=== PATIENT | male | born 1980 | race Caucasian/White ===

== ENCOUNTER 2016-08-03 10:49 | Emergency (ER) | payer OTHER ==
--- NOTE | 2016-08-03 16:53 | ED ORDER SUMMARY ---
..... Patient: YFN GOODEN OrderSheet VisitID: [id number] [place] [address] 36y, M Registration Date/Time: 08/03/2016 ORDER SHEET Weight: 77.1 kg (estimated) Allergies: No Known Drug Allergy GENERAL ORDERS: Cardiac Panel Stat (12:08/03/2016 Fernanda ARAIZA) (Ack 12:16 CHARLIoerner) (13:00 JSimbeck R.N.) Urine Drug Screen Urgent (12:08/03/2016 Fernanda ARAIZA) (Ack 12:16 CHARLIoejasminner) (Cancelled: Unable to Cbzkwku06:23 FIDENCIOimbeck R.N.) Ethyl Alcohol Urgent (12:08/03/2016 Fernanda ARAIZA) (Ack 12:16 CHARLIoejasminner) (13:00 JSimbeck R.N.) Acetaminophen Level Urgent (12:08/03/2016 Fernanda ARAIZA) (Ack 12:16 CHARLIoerner) (13:00 JSimbeck R.N.) Salicylate Level Urgent (12:08/03/2016 Fernanda ARAIZA) (Ack 12:16 Anabelarner) (13:00 JSimbeck R.N.) MEDICATION ORDERS: Clonidine Topical 0.2 mg (NOW) (11:19 08/03/2016 Fernanda ARAIZA) (11:47 JSimbeck R.N.) Ativan IM 2 mg (NOW) (11:19 08/03/2016 Fernanda ARAIZA) (Cancelled: Other11:19 Fernanda ARAIZA) Ativan IM 2 mg (NOW) (11:21 08/03/2016 Fernanda ARAIZA) (11:47 FIDENCIOimbeck R.N.) IV FLUIDS: IV NS : initial bolus 1000 mL (1000 mL/hr), then none - for X1 (NOW); Routine (12:14 08/03/2016 Fernanda ARAIZA) (13:02 JSimbeck R.N.) IV NS : initial bolus 1000 mL (1000 mL/hr), then none - for X1 (NOW) (16:43 08/03/2016 Bigg Blanco verbal order read back to Fernanda ARAIZA) (16:45 Bigg Blanco) ORDER SHEET NOTES: [Electronically signed by Castillo Drake R.N. (18:24 08/03/2016)] [Electronically signed by Surjit Alonso MD (07:42 08/04/2016)] [Electronically locked/signed by Castillo Drake R.N. (18:24 08/03/2016)]
--- NOTE | 2016-08-03 16:53 | ED CLINICAL REPORT ---
Clinical Report - Physicians/Mid Levels [facility] [address] [place] [address] 08/03/2016 10:50 Patient: YFN GOODEN Time Seen: 11:13 Aug 03 2016. Arrived- By private vehicle. Historian- patient and police. CPT: ER phys charges level 4 (#[id number]). HISTORY OF PRESENT ILLNESS Chief Complaint: CHANGED MENTAL STATUS. ALTERED MENTAL STATUS and (Reports using Methamphetamines & Heroin yesterday. Pt is very restless, twitching.). Has not slept for 3 days. The patient has been confused and had trouble concentrating. (unintended twitching and tremor. Cannot sit still.). This started yesterday, is still present and unknown when patient was last known well. (Found in street confused with bizarre behavior.). No weakness, numbness or recent fall. No difficulty walking. Usually is alert and oriented X3 and usually has normal mobility. Similar symptoms previously: Milder. Diagnosis: (methamphetamine use). Recent medical care: Not recently seen/assessed. REVIEW OF SYSTEMS No fever, headache, head injury, chest pain or difficulty breathing. No cough, sputum production, sore throat, abdominal pain or nausea. No diarrhea, difficulty with urination, skin rash or vomiting. All systems otherwise negative, except as recorded above. PAST HISTORY ( Substance Abuse. GERD. Depression. - ADDITIONAL SURGERIES: Appendectomy. Knee Surgery.). Medications: Remeron Oral. Zoloft Oral. Omeprazole Oral. Allergies: No Known Drug Allergy. SOCIAL HISTORY Heavy tobacco smoker (cigarette)- less than 1 pack per day. History of drug use: heroin, methamphetamines, marijuana. No alcohol use. ADDITIONAL NOTES The nursing notes have been reviewed. PHYSICAL EXAM Vital Signs: 08/03/2016 10:52 BP: 139/95. HR: 104. RR: 20. O2 saturation: 100%. Temp: 98.1 F. Pain level now: 0/10. Appearance: Alert. No acute distress. (unable to stop muscle twitching and muscle jerking.). Head: Head atraumatic. Eyes: Pupils equal, round and reactive to light. ENT: Normal ENT inspection. Airway intact. Moist mucous membranes. Neck: Normal inspection. CVS: Normal heart rate and rhythm. Heart sounds normal. Pulses normal. Respiratory: No respiratory distress. Breath sounds normal. Abdomen: Soft and nontender. Skin: Skin warm. Normal skin color. No rash. Slight diaphoresis (over face.). Extremities: Extremities exhibit normal ROM. No lower extremity edema. Neuro: Alert. Oriented X 3. Abnormal verbal response (muscle twitching interferes with speech but patient oriented.). Mood/affect normal. Cranial nerves normal (as tested). Finger-nose test abnormal (unintentional muscle jerking inhibits exam but patient able to do finger to nose.). No motor deficit. No sensory deficit. LABS, X-RAYS, AND EKG Laboratory Tests: CBC w Diff: (SILVIA: 08/03/2016 12:55) ( [facility] 08/03/2016 13:08) Final results Test Result Flag Units (Reference) WHITE BLOOD COUNT 17.7 H K/uL (4.5-11.5) RED BLOOD COUNT 5.09 M/uL (4.50-5.90) HEMOGLOBIN 15.0 gm/dL (13.5-17.5) HEMATOCRIT 44.5 % (41.0-53.0) MEAN CELL VOLUME 87 fL (80-100) MEAN CORPUSCULAR HGB 30 pg (26-34) MEAN CORPUSCULAR HGB CONC 34 g/dL (31-37) RED CELL DISTRIBUTION WIDTH 13.4 % (11.6-14.8) PLATELET COUNT 250 K/uL (150-400) NEUTROPHIL % 82.4 H % (50-75) LYMPH % 7.3 L % (25-40) MONO % 10.2 % (3-14) EOSINOPHIL % 0 % (0-4) BASOPHIL % 0.1 % (0-2) Salicylate Level: (SILVIA: 08/03/2016 12:55) ( [facility] 08/03/2016 13:36) Final results Test Result Flag Units (Reference) SALICYLATE <2.8 L mg/dL (2.8-20) CHEM 13 PANEL: (SILVIA: 08/03/2016 12:55) ( MsgRcvd 08/03/2016 15:01) Final results Test Result Flag Units (Reference) GLUCOSE 57 L mg/dL (70-110) BUN 28 H mg/dL (7-18) CREATININE 1.4 H mg/dL (0.6-1.3) Estimated GFR >60 mL/min Estimated GFR- >60 mL/min Note: Persistent reduction over 3 months in eGFR<60 mL/min/1.73 m2 defines CKD. Patients with eGFR values>=60 mL/min/1.73 m2 may also have CKD if evidence ofpersistent proteinuria. Additional information may be foundat www.kidney.org. SODIUM 135 L mmol/L (136-145) POTASSIUM 3.8 mmol/L (3.5-5.1) CHLORIDE 98 mmol/L (98-107) CARBON DIOXIDE 22 mmol/L (21-32) CALCIUM 9.1 mg/dL (8.5-10.1) TOTAL PROTEIN 8.8 H g/dL (6.4-8.2) ALBUMIN 4.8 g/dL (3.3-5.0) BILIRUBIN, TOTAL 1.6 H mg/dL (0.0-1.0) ALKALINE PHOSPHATASE 95 U/L (46-116) AST (SGOT) 73 H U/L (15-37) ALT (SGPT) 58 U/L (12-78) MAGNESIUM 1.7 L mg/dL (1.8-2.4) ETHYL ALCOHOL <3 L mg/dL (3-10) TROPONIN I <0.05 ng/mL (0.00-1.5) TROPONIN REFERENCE RANGE:<0.1 NEGATIVE0.1-1.5 INDETERMINANT>1.5 POSITIVE CPK 1604 H U/L (24-260) CK-MB 33.5 H ng/mL (0.5-3.2) %CKMB 2.1 % (0.0-4.0) ACETAMINOPHEN 0 L ug/mL (10-30) . PROGRESS AND PROCEDURES Course of Care: Pt having a combination of sleep deprivation , methamphetamine use and withdrawal from heroin. Has secondary neurologic muscle jerking related to chronic methamphetamine use. Ativan 2 mg IM and patient sleeping with minimal muscle twitching. Much improved clinically. IV NS times 2 liters for dehydration and elevated CK from muscle movement. Clonidine 0.2 mg topical for withdrawal. Pt released to detention in stable condition. Ambulatory now with minimal muscle twitching. Patient/family counseled. Disposition: Discharged. Condition: stable and improved. CLINICAL IMPRESSION Substance abuse problems: abuse of methamphetamine. Substance dependence problems: dependence on methamphetamine. Sleep deprivation and involuntary muscle jerking due to methamphetamines. Dehydration Involuntary muscle jerking resulting in elevated CPK Withdrawal and involuntary muscle jerking resulting in elevated WBC. INSTRUCTIONS Drink plenty of fluids. (Leave clonidine patch on for 1 week. You are medically cleared to book into detention.). Warnings: Further evaluation is necessary. GENERAL WARNINGS: Return or contact your physician immediately if your condition worsens or changes unexpectedly, if not improving as expected, or if other problems arise. Your Current Medications: CONTINUE TAKING THE FOLLOWING MEDICATIONS: Omeprazole Oral. Remeron Oral. Zoloft Oral. Prescription Medications: Ativan 1 mg: take 1 orally every 6 hours as needed for anxiety. Dispense ten (10). No refill. Follow-up: Follow up with your doctor in one week. Call for an appointment. Understanding of the discharge instructions verbalized by patient. (Electronically signed by Surjit Alonso MD 08/04/2016 7:42)
--- NOTE | 2016-08-03 16:53 | ED CLINICAL REPORT ---
Clinical Report - Physicians/Mid Levels [facility] [address] [place] [address] 08/03/2016 10:50 Patient: YFN GOODEN Time Seen: 11:13 Aug 03 2016. Arrived- By private vehicle. Historian- patient and police. CPT: ER phys charges level 4 (#[id number]). HISTORY OF PRESENT ILLNESS Chief Complaint: CHANGED MENTAL STATUS. ALTERED MENTAL STATUS and (Reports using Methamphetamines & Heroin yesterday. Pt is very restless, twitching.). Has not slept for 3 days. The patient has been confused and had trouble concentrating. (unintended twitching and tremor. Cannot sit still.). This started yesterday, is still present and unknown when patient was last known well. (Found in street confused with bizarre behavior.). No weakness, numbness or recent fall. No difficulty walking. Usually is alert and oriented X3 and usually has normal mobility. Similar symptoms previously: Milder. Diagnosis: (methamphetamine use). Recent medical care: Not recently seen/assessed. REVIEW OF SYSTEMS No fever, headache, head injury, chest pain or difficulty breathing. No cough, sputum production, sore throat, abdominal pain or nausea. No diarrhea, difficulty with urination, skin rash or vomiting. All systems otherwise negative, except as recorded above. PAST HISTORY ( Substance Abuse. GERD. Depression. - ADDITIONAL SURGERIES: Appendectomy. Knee Surgery.). Medications: Remeron Oral. Zoloft Oral. Omeprazole Oral. Allergies: No Known Drug Allergy. SOCIAL HISTORY Heavy tobacco smoker (cigarette)- less than 1 pack per day. History of drug use: heroin, methamphetamines, marijuana. No alcohol use. ADDITIONAL NOTES The nursing notes have been reviewed. PHYSICAL EXAM Vital Signs: 08/03/2016 10:52 BP: 139/95. HR: 104. RR: 20. O2 saturation: 100%. Temp: 98.1 F. Pain level now: 0/10. Appearance: Alert. No acute distress. (unable to stop muscle twitching and muscle jerking.). Head: Head atraumatic. Eyes: Pupils equal, round and reactive to light. ENT: Normal ENT inspection. Airway intact. Moist mucous membranes. Neck: Normal inspection. CVS: Normal heart rate and rhythm. Heart sounds normal. Pulses normal. Respiratory: No respiratory distress. Breath sounds normal. Abdomen: Soft and nontender. Skin: Skin warm. Normal skin color. No rash. Slight diaphoresis (over face.). Extremities: Extremities exhibit normal ROM. No lower extremity edema. Neuro: Alert. Oriented X 3. Abnormal verbal response (muscle twitching interferes with speech but patient oriented.). Mood/affect normal. Cranial nerves normal (as tested). Finger-nose test abnormal (unintentional muscle jerking inhibits exam but patient able to do finger to nose.). No motor deficit. No sensory deficit. LABS, X-RAYS, AND EKG Laboratory Tests: CBC w Diff: (SILVIA: 08/03/2016 12:55) ( [facility] 08/03/2016 13:08) Final results Test Result Flag Units (Reference) WHITE BLOOD COUNT 17.7 H K/uL (4.5-11.5) RED BLOOD COUNT 5.09 M/uL (4.50-5.90) HEMOGLOBIN 15.0 gm/dL (13.5-17.5) HEMATOCRIT 44.5 % (41.0-53.0) MEAN CELL VOLUME 87 fL (80-100) MEAN CORPUSCULAR HGB 30 pg (26-34) MEAN CORPUSCULAR HGB CONC 34 g/dL (31-37) RED CELL DISTRIBUTION WIDTH 13.4 % (11.6-14.8) PLATELET COUNT 250 K/uL (150-400) NEUTROPHIL % 82.4 H % (50-75) LYMPH % 7.3 L % (25-40) MONO % 10.2 % (3-14) EOSINOPHIL % 0 % (0-4) BASOPHIL % 0.1 % (0-2) Salicylate Level: (SILVIA: 08/03/2016 12:55) ( [facility] 08/03/2016 13:36) Final results Test Result Flag Units (Reference) SALICYLATE <2.8 L mg/dL (2.8-20) CHEM 13 PANEL: (SILVIA: 08/03/2016 12:55) ( MsgRcvd 08/03/2016 15:01) Final results Test Result Flag Units (Reference) GLUCOSE 57 L mg/dL (70-110) BUN 28 H mg/dL (7-18) CREATININE 1.4 H mg/dL (0.6-1.3) Estimated GFR >60 mL/min Estimated GFR- >60 mL/min Note: Persistent reduction over 3 months in eGFR<60 mL/min/1.73 m2 defines CKD. Patients with eGFR values>=60 mL/min/1.73 m2 may also have CKD if evidence ofpersistent proteinuria. Additional information may be foundat www.kidney.org. SODIUM 135 L mmol/L (136-145) POTASSIUM 3.8 mmol/L (3.5-5.1) CHLORIDE 98 mmol/L (98-107) CARBON DIOXIDE 22 mmol/L (21-32) CALCIUM 9.1 mg/dL (8.5-10.1) TOTAL PROTEIN 8.8 H g/dL (6.4-8.2) ALBUMIN 4.8 g/dL (3.3-5.0) BILIRUBIN, TOTAL 1.6 H mg/dL (0.0-1.0) ALKALINE PHOSPHATASE 95 U/L (46-116) AST (SGOT) 73 H U/L (15-37) ALT (SGPT) 58 U/L (12-78) MAGNESIUM 1.7 L mg/dL (1.8-2.4) ETHYL ALCOHOL <3 L mg/dL (3-10) TROPONIN I <0.05 ng/mL (0.00-1.5) TROPONIN REFERENCE RANGE:<0.1 NEGATIVE0.1-1.5 INDETERMINANT>1.5 POSITIVE CPK 1604 H U/L (24-260) CK-MB 33.5 H ng/mL (0.5-3.2) %CKMB 2.1 % (0.0-4.0) ACETAMINOPHEN 0 L ug/mL (10-30) . PROGRESS AND PROCEDURES Course of Care: Pt having a combination of sleep deprivation , methamphetamine use and withdrawal from heroin. Has secondary neurologic muscle jerking related to chronic methamphetamine use. Ativan 2 mg IM and patient sleeping with minimal muscle twitching. Much improved clinically. IV NS times 2 liters for dehydration and elevated CK from muscle movement. Clonidine 0.2 mg topical for withdrawal. Pt released to [facility] in stable condition. Ambulatory now with minimal muscle twitching. Patient/family counseled. Disposition: Discharged. Condition: stable and improved. CLINICAL IMPRESSION Substance abuse problems: abuse of methamphetamine. Substance dependence problems: dependence on methamphetamine. Sleep deprivation and involuntary muscle jerking due to methamphetamines. Dehydration Involuntary muscle jerking resulting in elevated CPK Withdrawal and involuntary muscle jerking resulting in elevated WBC. INSTRUCTIONS Drink plenty of fluids. (Leave clonidine patch on for 1 week. You are medically cleared to book into [facility].). Warnings: Further evaluation is necessary. GENERAL WARNINGS: Return or contact your physician immediately if your condition worsens or changes unexpectedly, if not improving as expected, or if other problems arise. Your Current Medications: CONTINUE TAKING THE FOLLOWING MEDICATIONS: Omeprazole Oral. Remeron Oral. Zoloft Oral. Prescription Medications: Ativan 1 mg: take 1 orally every 6 hours as needed for anxiety. Dispense ten (10). No refill. Follow-up: Follow up with your doctor in one week. Call for an appointment. Understanding of the discharge instructions verbalized by patient. (Electronically signed by Surjit Alonso MD 08/04/2016 7:42)
--- NOTE | 2016-08-03 16:53 | ED NURSING NOTES ---
Clinical Report - Nurses [facility] [place] [address] [place] [address] 08/03/2016 10:50 [id number] Triage time 10:50. Acuity: LEVEL 4. Chief Complaint: ALTERED MENTAL STATUS and (Reports using Methamphetamines & Heroin yesterday. Pt is very restless, twitching.). SEPSIS SCREEN: Sepsis Screen. Negative (no infection suspected/documented). JOSE COMA SCORE: Cornell Coma Scale: 14- eyes open spontaneously (4); best verbal response- disoriented (4); best motor response- obeys commands (6). --11:04 Castillo Drake R.N. 10:52 08/03/16. BP: 139/95. HR: 104. RR: 20. O2 saturation: 100% on room air. Temp: 98.1 F. Pain level now: 0/10. --11:04 Castillo Drake R.N. Weight: 77.1 kg estimated. Height/Length: 74 inches Per Patient. BMI: 21.8. --10:57 Castillo Drake R.N. Medications Omeprazole Oral. --11:01 Castillo Drake R.N. Zoloft Oral. --11:01 Castillo Drake R.N. Remeron Oral. --11:01 Castillo Drake R.N. Allergies No Known Drug Allergy. --11:01 Castillo Drake R.N. History Arrived by EMS, and in police custody ([employer]). Historian: EMS and patient. SOCIAL HX: Light tobacco smoker (cigarette)- less than 1/2 a pack per day. History of occasional drug use: heroin, methamphetamines, marijuana. (Marijuana - daily). No alcohol use. ABUSE ASSESSMENT: No report of abuse. --11:04 Castillo Drake R.N. PROBLEMS: Substance Abuse. GERD. Depression. --11:03 Castillo Drake R.N. ADDITIONAL SURGERIES: Appendectomy. Knee Surgery. --11:03 Castillo Drake R.N. Interventions ID band on patient. To treatment room. --11:04 Castillo Drake R.N. PHYSICAL ASSESSMENT To room via stretcher. (arrived handcuffed with EMS & Police). GENERAL / NEURO / PSYCH: Alert. Appears in no acute distress. (pt is hyperactive, restless, twitching). The patient is disoriented to time. Patient's speech is incoherent (at times). Patient does not appear neat and clean. HEENT: Pupils equal, round and reactive to light. RESPIRATORY: Respirations not labored. Breath sounds within normal limits. CVS: Capillary refill less than 2 seconds. GI / : Abdomen soft and nontender. SKIN: Skin is warm. Skin is slightly diaphoretic. Normal skin turgor. --11:13 Castillo Drake R.N. NURSING PROGRESS NOTES Head of bed elevated. Reassurance given. Two patient identifiers checked. Side rails up x 2. Bed placed in lowest position. Brakes of bed on. Patient ready for evaluation- chart flagged. ( Police at the bedside). --11:13 Castillo Drake R.N. 11:45 08/03/2016 Clonidine Topical Patch/Pad 0.2 mg. Applied to the left upper arm. Allergies verified and confirmed 5 rights. --11:47 Castillo Drake R.N. 11:45 08/03/2016 Ativan (LORazepam) IM 2 mg given. Given in the right deltoid. Allergies verified, confirmed 5 rights and sedative warning given to the patient. --11:47 Castillo Drake R.N. 12:46 08/03/2016 Site #1 started via IV in the left forearm with an 18g angiocath, with aseptic technique and good blood return; two attempts. Blood drawn: rainbow set. Labeled in the presence of the patient and sent to the lab. Saline lock flushed with 10 mL saline. --13:01 Castillo Drake R.N. 12:47 08/03/2016 Started bag #1 1000 mL IV Fluids IV NS (Saline); bolus of 1000 mL over 45 minute(s) via site #1. Allergies verified and confirmed 5 rights. IV patency established. IV site checked: no pain, redness, or swelling. IV flushed thoroughly pre- and post-medication administration. --13:02 Castillo Drake R.N. 13:15 08/03/16. BP: 118/73. HR: 92. RR: 16. O2 saturation: 99% on room air. Pain level now: 0/10. --13:27 Castillo Drake R.N. 13:20 08/03/2016 IV Fluids IV NS Discontinued: bag #1 completed. Total amount infused: 1000 mL. IV patency established. IV site checked: no pain, redness, or swelling. IV flushed thoroughly. --13:28 Castillo Drake R.N. 13:45 08/03/16. BP: 113/74. HR: 80. RR: 16. O2 saturation: 96%. Pain level now: 0/10. --15:00 Castillo Drake R.N. 14:15 08/03/16. BP: 117/70. HR: 77. RR: 16. O2 saturation: 98% on room air. Pain level now: 0/10. --15:01 Castillo Drake R.N. 14:30 08/03/16. BP: 106/71. HR: 74. RR: 16. O2 saturation: 98% on room air. Pain level now: 0/10. --15:02 Castillo Drake R.N. 15:40 08/03/16. BP: 120/74. HR: 72. RR: 16. O2 saturation: 97% on room air. Pain level now: 0/10. --16:41 Castillo Drake R.N. 15:20 08/03/2016 Started bag #2 1000 mL IV Fluids IV NS (Saline); bolus of 1000 mL over 1 hour(s) via site #1 via IV pump. Allergies verified and confirmed 5 rights. IV patency established. IV site checked: no pain, redness, or swelling. IV flushed thoroughly pre- and post-medication administration. --16:45 Castillo Drake R.N. 16:20 08/03/2016 IV Fluids IV NS Discontinued: bag #2 completed. Total amount infused: 1000 mL. IV patency established. IV site checked: no pain, redness, or swelling. IV flushed thoroughly. --16:45 Castillo Drake R.N. DISPOSITION / DISCHARGE 17:00 08/03/2016 Site #1 removed upon discharge. Bandage applied. --17:04 Castillo Drake R.N. Departure time: 1702. Condition at departure: improved and stable. No learning barriers present. Discharge instructions provided and reviewed with the patient. Reviewed warnings. Patient verbalized understanding. Written instructions provided in Peruvian. The patient was discharged by the physician. He was discharged to police department facility and accompanied by a police escort. He left the Emergency Department ambulatory and via police department vehicle. Driving (Police). --17:04 Castillo Drake R.N. 16:25 08/03/16. BP: 120/80. HR: 71. RR: 16. O2 saturation: 98% on room air. Temp: 98 F (temporal). Pain level now: 0/10. --17:04 Castillo Drake R.N. Locked/Released at 08/03/2016 18:24 by Castillo Drake R.N.
--- NOTE | 2016-08-03 16:53 | ED ORDER SUMMARY ---
..... Patient: YFN GOODEN OrderSheet [facility] VisitID: [id number] [place] [address] 36y, M Registration Date/Time: 08/03/2016 ORDER SHEET Weight: 77.1 kg (estimated) Allergies: No Known Drug Allergy GENERAL ORDERS: Cardiac Panel Stat (12:08/03/2016 Fernanda ARAIZA) (Ack 12:16 CHARLIoerner) (13:00 JSimbeck R.N.) Urine Drug Screen Urgent (12:08/03/2016 Fernanda ARAIZA) (Ack 12:16 CHARLIoejasminner) (Cancelled: Unable to Bhsnpdc04:23 FIDENCIOimbeck R.N.) Ethyl Alcohol Urgent (12:08/03/2016 Fernanda ARAIZA) (Ack 12:16 CHARLIoejasminner) (13:00 JSimbeck R.N.) Acetaminophen Level Urgent (12:08/03/2016 Fernanda ARAIZA) (Ack 12:16 CHARLIoerner) (13:00 JSimbeck R.N.) Salicylate Level Urgent (12:08/03/2016 Fernanda ARAIZA) (Ack 12:16 Anabelarner) (13:00 JSimbeck R.N.) MEDICATION ORDERS: Clonidine Topical 0.2 mg (NOW) (11:19 08/03/2016 Fernanda ARAIZA) (11:47 JSimbeck R.N.) Ativan IM 2 mg (NOW) (11:19 08/03/2016 Fernanda ARAIZA) (Cancelled: Other11:19 Fernanda ARAIZA) Ativan IM 2 mg (NOW) (11:21 08/03/2016 Fernanda ARAIZA) (11:47 FIDENCIOimbeck R.N.) IV FLUIDS: IV NS : initial bolus 1000 mL (1000 mL/hr), then none - for X1 (NOW); Routine (12:14 08/03/2016 Fernanda ARAIZA) (13:02 JSimbeck R.N.) IV NS : initial bolus 1000 mL (1000 mL/hr), then none - for X1 (NOW) (16:43 08/03/2016 Bigg Blanco verbal order read back to Fernanda ARAIZA) (16:45 Bigg Blanco) ORDER SHEET NOTES: [Electronically signed by Castillo Drake R.N. (18:24 08/03/2016)] [Electronically signed by Surjit Alonso MD (07:42 08/04/2016)] [Electronically locked/signed by Castillo Drake R.N. (18:24 08/03/2016)]
--- NOTE | 2016-08-04 07:42 | ED MAR SUMMARY ---
..... Medication Administration Record [facility] [address] [place] [address] Patient: YFN GOODEN Visit ID: [id number] 36y, M Weight: 77.1 kg Height/Length: 74 in BMI: 21.8 ALLERGIES: No Known Drug Allergy Given 11:08/03/2016 Castillo Drake R.N. Medication Administered: CLONIDINE [TOPICAL], Dose: 0.2 mg Patch/Pad Topical. Medication Ordered: Clonidine Topical 0.2 mg (NOW). Given 11:45 08/03/2016 Castillo Drake R.N. Medication Administered: ATIVAN [IM] (LORAZEPAM), Dose: 2 mg IM. Medication Ordered: Ativan IM 2 mg (NOW). Start 12:47 08/03/2016 Castillo Drake R.N., Stop 13:20 08/03/2016 Castillo Drake R.N. Medication Administered: IV NS (SALINE), Dose: IV Fluids, Bolus: 1000 mL over 45 minute(s), Dispensed: 1000 mL bag, Site: #1 left forearm. Medication Ordered: IV NS : initial bolus 1000 mL (1000 mL/hr), then none - for X1 (NOW); Routine. Start 15:20 08/03/2016 Castillo Drake R.N., Stop 16:08/03/2016 Castillo Drake R.N. Medication Administered: IV NS (SALINE), Dose: IV Fluids, Bolus: 1000 mL over 1 hour(s), Dispensed: 1000 mL bag, Site: #1 left forearm. Medication Ordered: IV NS : initial bolus 1000 mL (1000 mL/hr), then none - for X1 (NOW).
--- NOTE | 2016-08-04 07:42 | ED DISCHARGE INSTRUCTIONS ---
Patient: YFN GOODEN General Instructions [facility] VisitID: [id number] [place] [address] 36y, M Registration Date/Time: 08/03/2016 Substance abuse problems: abuse of methamphetamine. Substance dependence problems: dependence on methamphetamine. Sleep deprivation and involuntary muscle jerking due to methamphetamines. Dehydration Involuntary muscle jerking resulting in elevated CPK Withdrawal and involuntary muscle jerking resulting in elevated WBC. INSTRUCTIONS Drink plenty of fluids. (Leave clonidine patch on for 1 week. You are medically cleared to book into custodial.). Warnings: Further evaluation is necessary. GENERAL WARNINGS: Return or contact your physician immediately if your condition worsens or changes unexpectedly, if not improving as expected, or if other problems arise. Your Current Medications: CONTINUE TAKING THE FOLLOWING MEDICATIONS: Omeprazole Oral. Remeron Oral. Zoloft Oral. Prescription Medications: Ativan 1 mg: take 1 orally every 6 hours as needed for anxiety. Dispense ten (10). No refill. Follow-up: Follow up with your doctor in one week. Call for an appointment. Understanding of the discharge instructions verbalized by patient. ADDITIONAL INFORMATION Lorazepam Oral tablet What is this medicine? LORAZEPAM (rosy A ze kip) is a benzodiazepine. It is used to treat anxiety. How should I use this medicine? Take this medicine by mouth with a glass of water. Follow the directions on the prescription label. If it upsets your stomach, take it with food or milk. Take your medicine at regular intervals. Do not take it more often than directed. Do not stop taking except on the advice of your doctor or health home health care worker. Talk to your nozzle tender regarding the use of this medicine in children. Special care may be needed. What side effects may I notice from receiving this medicine? Side effects that you should report to your doctor or health home health care worker as soon as possible: changes in vision confusion depression mood changes, excitability or aggressive behavior movement difficulty, staggering or jerky movements muscle cramps restlessness weakness or tiredness Side effects that usually do not require medical attention (report to your doctor or health home health care worker if they continue or are bothersome): constipation or diarrhea difficulty sleeping, nightmares dizziness, drowsiness headache nausea, vomiting What may interact with this medicine? barbiturate medicines for inducing sleep or treating seizures, like phenobarbital clozapine medicines for depression, mental problems or psychiatric disturbances medicines for sleep phenytoin probenecid theophylline valproic acid What if I miss a dose? If you miss a dose, take it as soon as you can. If it is almost time for your next dose, take only that dose. Do not take double or extra doses. Where should I keep my medicine? Keep out of the reach of children. This medicine can be abused. Keep your medicine in a safe place to protect it from theft. Do not share this medicine with anyone. Selling or giving away this medicine is dangerous and against the law. Store at room temperature between 20 and 25 degrees C (68 and 77 degrees F). Protect from light. Keep container tightly closed. Throw away any unused medicine after the expiration date. What should I tell my health care provider before I take this medicine? They need to know if you have any of these conditions: alcohol or drug abuse problem bipolar disorder, depression, psychosis or other mental health condition glaucoma kidney or liver disease lung disease or breathing difficulties myasthenia gravis Parkinson's disease seizures or a history of seizures suicidal thoughts an unusual or allergic reaction to lorazepam, other benzodiazepines, foods, dyes, or preservatives or trying to get breast-feeding What should I watch for while using this medicine? Visit your doctor or health home health care worker for regular checks on your progress. Your body may become dependent on this medicine, ask your doctor or health home health care worker if you still need to take it. However, if you have been taking this medicine regularly for some time, do not suddenly stop taking it. You must gradually reduce the dose or you may get severe side effects. Ask your doctor or health home health care worker for advice before increasing or decreasing the dose. Even after you stop taking this medicine it can still affect your body for several days. You may get drowsy or dizzy. Do not drive, use machinery, or do anything that needs mental alertness until you know how this medicine affects you. To reduce the risk of dizzy and fainting spells, do not stand or sit up quickly, especially if you are an older patient. Alcohol may increase dizziness and drowsiness. Avoid alcoholic drinks. Do not treat yourself for coughs, colds or allergies without asking your doctor or health home health care worker for advice. Some ingredients can increase possible side effects. You have been given the following additional information: Lorazepam Oral tablet (Electronically signed by Surjit Alonso MD 08/04/2016 7:42)
--- NOTE | 2016-08-04 07:42 | ED MED RECONCILIATION SUMMARY ---
Patient: YFN GOODEN Medication Reconciliation Report [facility] VisitID: [id number] [address] [place] [address] 36y, M Registration Date/Time: 08/03/2016 Weight: 77.1 kg Height/Length: 74 in. BMI: 21.8 ALLERGIES: No Known Drug Allergy The patient's Home Medications are listed below: CONTINUE TAKING THE FOLLOWING MEDICATIONS: Omeprazole Oral Remeron Oral Zoloft Oral The source(s) of the original Home Medication information: Not obtained. The following Medications were given to the patient in the Emergency Department: Clonidine [Topical] Topical 0.2 mg, administered: 08/03/2016 11:45:00 AM Ativan [IM] IM 2 mg, administered: 08/03/2016 11:45:00 AM IV NS IV Fluids bolus 1000 mL over 45 minute(s), administered: 08/03/2016 12:47:00 PM IV NS IV Fluids bolus 1000 mL over 1 hour(s), administered: 08/03/2016 3:20:00 PM The following Medications were prescribed to the patient: Ativan 1 mg: take 1 orally every 6 hours as needed for anxiety. Dispense ten (10). No refill. -- Surjit Alonso MD
--- NOTE | 2016-08-04 07:42 | ED MED RECONCILIATION SUMMARY ---
Patient: YFN GOODEN Medication Reconciliation Report [facility] VisitID: [id number] [address] [place] [address] 36y, M Registration Date/Time: 08/03/2016 Weight: 77.1 kg Height/Length: 74 in. BMI: 21.8 ALLERGIES: No Known Drug Allergy The patient's Home Medications are listed below: CONTINUE TAKING THE FOLLOWING MEDICATIONS: Omeprazole Oral Remeron Oral Zoloft Oral The source(s) of the original Home Medication information: Not obtained. The following Medications were given to the patient in the Emergency Department: Clonidine [Topical] Topical 0.2 mg, administered: 08/03/2016 11:45:00 AM Ativan [IM] IM 2 mg, administered: 08/03/2016 11:45:00 AM IV NS IV Fluids bolus 1000 mL over 45 minute(s), administered: 08/03/2016 12:47:00 PM IV NS IV Fluids bolus 1000 mL over 1 hour(s), administered: 08/03/2016 3:20:00 PM The following Medications were prescribed to the patient: Ativan 1 mg: take 1 orally every 6 hours as needed for anxiety. Dispense ten (10). No refill. -- Surjit Alonso MD
--- NOTE | 2016-08-04 07:42 | ED DISCHARGE INSTRUCTIONS ---
Patient: YFN GOODEN General Instructions [facility] VisitID: [id number] [place] [address] 36y, M Registration Date/Time: 08/03/2016 Substance abuse problems: abuse of methamphetamine. Substance dependence problems: dependence on methamphetamine. Sleep deprivation and involuntary muscle jerking due to methamphetamines. Dehydration Involuntary muscle jerking resulting in elevated CPK Withdrawal and involuntary muscle jerking resulting in elevated WBC. INSTRUCTIONS Drink plenty of fluids. (Leave clonidine patch on for 1 week. You are medically cleared to book into fpc.). Warnings: Further evaluation is necessary. GENERAL WARNINGS: Return or contact your physician immediately if your condition worsens or changes unexpectedly, if not improving as expected, or if other problems arise. Your Current Medications: CONTINUE TAKING THE FOLLOWING MEDICATIONS: Omeprazole Oral. Remeron Oral. Zoloft Oral. Prescription Medications: Ativan 1 mg: take 1 orally every 6 hours as needed for anxiety. Dispense ten (10). No refill. Follow-up: Follow up with your doctor in one week. Call for an appointment. Understanding of the discharge instructions verbalized by patient. ADDITIONAL INFORMATION Lorazepam Oral tablet What is this medicine? LORAZEPAM (rosy A ze kip) is a benzodiazepine. It is used to treat anxiety. How should I use this medicine? Take this medicine by mouth with a glass of water. Follow the directions on the prescription label. If it upsets your stomach, take it with food or milk. Take your medicine at regular intervals. Do not take it more often than directed. Do not stop taking except on the advice of your doctor or health nurse behavioral health care. Talk to your restaurant floor manager regarding the use of this medicine in children. Special care may be needed. What side effects may I notice from receiving this medicine? Side effects that you should report to your doctor or health nurse behavioral health care as soon as possible: changes in vision confusion depression mood changes, excitability or aggressive behavior movement difficulty, staggering or jerky movements muscle cramps restlessness weakness or tiredness Side effects that usually do not require medical attention (report to your doctor or health nurse behavioral health care if they continue or are bothersome): constipation or diarrhea difficulty sleeping, nightmares dizziness, drowsiness headache nausea, vomiting What may interact with this medicine? barbiturate medicines for inducing sleep or treating seizures, like phenobarbital clozapine medicines for depression, mental problems or psychiatric disturbances medicines for sleep phenytoin probenecid theophylline valproic acid What if I miss a dose? If you miss a dose, take it as soon as you can. If it is almost time for your next dose, take only that dose. Do not take double or extra doses. Where should I keep my medicine? Keep out of the reach of children. This medicine can be abused. Keep your medicine in a safe place to protect it from theft. Do not share this medicine with anyone. Selling or giving away this medicine is dangerous and against the law. Store at room temperature between 20 and 25 degrees C (68 and 77 degrees F). Protect from light. Keep container tightly closed. Throw away any unused medicine after the expiration date. What should I tell my health care provider before I take this medicine? They need to know if you have any of these conditions: alcohol or drug abuse problem bipolar disorder, depression, psychosis or other mental health condition glaucoma kidney or liver disease lung disease or breathing difficulties myasthenia gravis Parkinson's disease seizures or a history of seizures suicidal thoughts an unusual or allergic reaction to lorazepam, other benzodiazepines, foods, dyes, or preservatives or trying to get breast-feeding What should I watch for while using this medicine? Visit your doctor or health nurse behavioral health care for regular checks on your progress. Your body may become dependent on this medicine, ask your doctor or health nurse behavioral health care if you still need to take it. However, if you have been taking this medicine regularly for some time, do not suddenly stop taking it. You must gradually reduce the dose or you may get severe side effects. Ask your doctor or health nurse behavioral health care for advice before increasing or decreasing the dose. Even after you stop taking this medicine it can still affect your body for several days. You may get drowsy or dizzy. Do not drive, use machinery, or do anything that needs mental alertness until you know how this medicine affects you. To reduce the risk of dizzy and fainting spells, do not stand or sit up quickly, especially if you are an older patient. Alcohol may increase dizziness and drowsiness. Avoid alcoholic drinks. Do not treat yourself for coughs, colds or allergies without asking your doctor or health nurse behavioral health care for advice. Some ingredients can increase possible side effects. You have been given the following additional information: Lorazepam Oral tablet (Electronically signed by Surjit Alonso MD 08/04/2016 7:42)
--- NOTE | 2016-08-04 07:42 | ED MAR SUMMARY ---
..... Medication Administration Record [facility] [address] [place] [address] Patient: YFN GOODEN Visit ID: [id number] 36y, M Weight: 77.1 kg Height/Length: 74 in BMI: 21.8 ALLERGIES: No Known Drug Allergy Given 11:08/03/2016 Castillo Drake R.N. Medication Administered: CLONIDINE [TOPICAL], Dose: 0.2 mg Patch/Pad Topical. Medication Ordered: Clonidine Topical 0.2 mg (NOW). Given 11:45 08/03/2016 Castillo Drake R.N. Medication Administered: ATIVAN [IM] (LORAZEPAM), Dose: 2 mg IM. Medication Ordered: Ativan IM 2 mg (NOW). Start 12:47 08/03/2016 Castillo Drake R.N., Stop 13:20 08/03/2016 Castillo Drake R.N. Medication Administered: IV NS (SALINE), Dose: IV Fluids, Bolus: 1000 mL over 45 minute(s), Dispensed: 1000 mL bag, Site: #1 left forearm. Medication Ordered: IV NS : initial bolus 1000 mL (1000 mL/hr), then none - for X1 (NOW); Routine. Start 15:20 08/03/2016 Castillo Drake R.N., Stop 16:08/03/2016 Castillo Drake R.N. Medication Administered: IV NS (SALINE), Dose: IV Fluids, Bolus: 1000 mL over 1 hour(s), Dispensed: 1000 mL bag, Site: #1 left forearm. Medication Ordered: IV NS : initial bolus 1000 mL (1000 mL/hr), then none - for X1 (NOW).
== END 2016-08-03 17:02 ==
LOC: ED SRH 10:49
DX: E86.0 Dehydration (principal); F15.282 Other stimulant dependence with stimulant-induced sleep disorder; Z72.820 Sleep deprivation; R25.8 Other abnormal involuntary movements; D72.829 Elevated white blood cell count, unspecified; R79.89 Other specified abnormal findings of blood chemistry; Z79.899 Other long term (current) drug therapy; F17.210 Nicotine dependence, cigarettes, uncomplicated
CPT/HCPCS: 90100; 90616; 90617; 92010; 92610; 92720; 92780; 95059; 97000